=== PATIENT | male | born 1980 | race African-American/Black ===

== ENCOUNTER 2016-07-29 04:12 | Emergency (ER) | payer SELFPAY ==
[2016-07-29] MEDS ORDERED: DEXAMETHASONE SOD PHOS INJ 10 MG/1 ML VIAL IM ONE (04:35)
[2016-07-29] MEDS ORDERED: PENICILLIN G BENZATHINE 1.2 MILLION UNIT/2 ML DISP.SYRIN IM ONE (04:35)
--- NOTE | 2016-07-29 04:36 | ER Document Report ---
ED General - General Chief Complaint: Sore Throat Stated Complaint: SORE THROAT Notes: Patient is a 35 show male presents with complaint of sore throat for 3 days. Fever of 102 at home. He has missed work for last 3 days. He says it started to hurt when he swallows. No difficulty breathing. No cough. No congestion. No other complaints at this time. No abdominal pain or vomiting. TRAVEL OUTSIDE OF THE [place] IN LAST 30 DAYS: No - Related Data Allergies/Adverse Reactions: No Known Allergies Allergy (Verified 12/12/14 20:10) Past Medical History - Social History Smoking Status: Never Smoker Chew tobacco use (# tins/day): No Frequency of alcohol use: None Drug Abuse: None Family History: Reviewed & Not Pertinent Patient has suicidal ideation: No Patient has homicidal ideation: No Renal/ Medical History: Denies: Hx Peritoneal Dialysis Past Surgical History: Reports: Hx Appendectomy - Immunizations Hx Diphtheria, Pertussis, Tetanus Vaccination: Yes Review of Systems - Review of Systems Notes: My Normal Review Basic REVIEW OF SYSTEMS: CONSTITUTIONAL : Denies fever, chills, or sweats. Denies recent illness. EENT: Sore throat CARDIOVASCULAR: Denies chest pain. RESPIRATORY: Denies cough, cold, or chest congestion. Denies shortness of breath, difficulty breathing, or wheezing. GASTROINTESTINAL: Denies abdominal pain. Denies nausea, vomiting, or diarrhea. Denies constipation. Last BM: MUSCULOSKELETAL: Denies neck or back pain or joint pain or swelling. SKIN: Denies rash or skin lesions. NEUROLOGICAL: Denies altered mental status or loss of consciousness. D ALL OTHER SYSTEMS REVIEWED AND NEGATIVE. Physical Exam - Vital signs Vitals: Temp Resp BP Pulse Ox 98.5 F 17 135/82 H 95 07/29/16 04:15 07/29/16 04:15 07/29/16 04:15 07/29/16 04:15 - Notes Notes: General Appearance: Well nourished, alert, cooperative, no acute distress, mild obvious discomfort. Well-appearing Vitals: reviewed, See vital signs table. Head: no swelling or tenderness to the head Eyes: PERRL, EOMI, Conjuctiva clear Mouth: No decreasd moisture Throat: Bilateral enlarged tonsils with erythema and exudates. Uvula is midline. No swelling in the peritonsillar space. No evidence of peritonsillar abscess. Neck: Supple, no neck tenderness, mild anterior cervical lymphadenopathy. Lungs: No wheezing, No rales, No rhonci, No accessory muscle use, good air exchange bilaterally. Heart: Normal rate, Regular rythm, No murmur, no rub Skin: warm, dry, appropriate color, no rash Neuro: speech clear, oriented x 3, normal affect, responds appropriately to questions. Course - Vital Signs Vital signs: Temp Pulse Resp BP Pulse Ox 98.5 F 17 135/82 H 95 07/29/16 04:15 07/29/16 04:15 07/29/16 04:15 07/29/16 04:15 - Transfer of Care Notes: 07/29/16 05:08 Patient has history and exam consistent with strep pharyngitis. I gave him a shot of penicillin as well as a shot of Decadron. I encouraged patient to return to ER if his symptoms are not improving in a few days. Also encouraged return to ER immediately. A swelling sensation of swelling in his throat or difficulty breathing. Also reviewed the signs and symptoms of peritonsillar abscess with him encouraged him to return to ER immediately if he has any signs or symptoms. Patient agrees with plan and will be discharged home. Dictation of this chart was performed using voice recognition software; therefore, there may be some unintended grammatical errors. Discharge - Discharge Clinical Impression: Strep throat Condition: Good Disposition: HOME, SELF-CARE Additional Instructions: Strep Throat Your sore throat is due to the streptococcus germ (strep throat). Strep throat usually makes you feel quite ill with fever and aches, headache, swollen sore throat, and tender bumps under the angles of the jaw. Strep throat requires antibiotic treatment. Although the sore throat may go away by itself, complications such as rheumatic fever, kidney disease, or throat abscess can occur. We usually prescribe antibiotics by mouth. Be sure to take the medicine until it's gone. If you stop early, the strep may come back. If you are vomiting, are severely ill, or can't remember to take pills, we can give you an antibiotic shot. Take acetaminophen or ibuprofen for pain and fever. Sip frequent clear liquids, or use popsicles or ice chips. Anesthetic sprays or lozenges may help. Make sure the air in the room is not too dry. Avoid using decongestants or antihistamines. Call the doctor if there is no improvement in three days, or if you have difficulty breathing, increasing throat pain, high fever, rash, or frequent vomiting. You have been given a shot of penicillin and Decadron. These are medications used to treat strep throat. Please return to ER immediately if you have difficulty breathing, increased difficulty swallowing, feel that your throat is becoming more swollen, recurrent high fevers, or feel unwell. Please return to ER immediately if you notice increased swelling in the back your throat or if the uvula ( hanging ball appearing structure in the back of your throat) is shifted to one side as these would be signs of a peritonsillar abscess. Forms: Return to Work
[2016-07-29 05:22] VITALS: BP 126/86
== END 2016-07-29 05:13 | disposition home or self-care (01) ==
LOC: ER 04:12
DX: J02.0 Streptococcal pharyngitis (principal)
CPT/HCPCS: 99282; 96372; J0561; J1100

== ENCOUNTER 2017-06-23 22:05 | Emergency (ER) | payer BC ==
[2017-06-23] MEDS ORDERED: HYDROCODONE/ACETAMINOPHEN 5-325 MG TABLET PO ONE (23:21)
[2017-06-23] MEDS ORDERED: CYCLOBENZAPRINE HCL 10 MG TABLET PO ONE (23:21)
--- NOTE | 2017-06-23 23:23 | ER Document Report ---
ED Neck/Back Problem - General Information source: Patient TRAVEL OUTSIDE OF THE [place] IN LAST 30 DAYS: No - General Chief Complaint: Back Pain Stated Complaint: BACK PAIN Time Seen by Provider: 06/23/17 22:59 Notes: Patient is a 36-year-old male who presents to the emergency department today with complaints of low back pain for the last 2 weeks. Patient states the pain got much worse today prior to arrival. Patient states his pain becomes much worse when he rolls over or tries to stand. Patient states his pain was so bad today he could not get out of bed. Patient denies any MVC or trauma to the back to cause the pain. Patient states he has no idea why the pain began. Patient denies any fevers, chills, nausea, vomiting, diarrhea, penile discharge , hematuria, numbness, tingling, weakness, urinary or fecal incontinence, or saddle anesthesia. (DANNY ESPAÑA) denies history of cancer, urinary catheterization, recent surgery. (LULA POSADA) - Related Data Allergies/Adverse Reactions: No Known Allergies Allergy (Verified 12/12/14 20:10) Past Medical History - General Information source: Patient - Social History Smoking Status: Never Smoker Cigarette use (# per day): No Chew tobacco use (# tins/day): No Frequency of alcohol use: None Drug Abuse: None Lives with: Family Family History: Reviewed & Not Pertinent Patient has suicidal ideation: No Patient has homicidal ideation: No Past Surgical History: Reports: Hx Appendectomy - 2004 - Immunizations Hx Diphtheria, Pertussis, Tetanus Vaccination: Yes Review of Systems - Review of Systems Constitutional: denies: Chills, Fever EENT: No symptoms reported Cardiovascular: No symptoms reported Respiratory: No symptoms reported Gastrointestinal: denies: Diarrhea, Nausea, Vomiting Genitourinary: No symptoms reported Male Genitourinary: denies: Penile discharge Musculoskeletal: See HPI, Back pain Skin: No symptoms reported Hematologic/Lymphatic: No symptoms reported Neurological/Psychological: denies: Weakness, Numbness, Tingling -: Yes All other systems reviewed and negative Physical Exam - Vital signs Vitals: Temp Pulse Resp BP Pulse Ox 98.6 F 88 16 132/78 H 98 06/23/17 22:13 06/23/17 22:13 06/23/17 22:13 06/23/17 22:13 06/23/17 22:13 - Notes Notes: PHYSICAL EXAM GENERAL: Alert, interacts well. No acute distress. HEAD: Normocephalic, atraumatic. EYES: Pupils equal, round, and reactive to light. Extraocular movements intact. ENT: Oral mucosa moist, tongue midline. NECK: Full range of motion. Supple. Trachea midline. LUNGS: Clear to auscultation bilaterally, no wheezes, rales, or rhonchi. No respiratory distress. HEART: Regular rate and rhythm. No murmurs, gallops, or rubs. ABDOMEN: Soft, non-tender. Non-distended. Bowel sounds present in all 4 quadrants. EXTREMITIES: Moves all 4 extremities spontaneously. No edema, radial and dorsalis pedis pulses 2/4 bilaterally. No cyanosis. BACK: Complains of pain when "using back muscles", lifting legs and rolling over cause pain. No reproducible pain with palpation. Negative bilateral straight leg raise. NEUROLOGICAL: Alert and oriented x3. Normal speech. Normal great toe raise strength. Patellar DTRs 2+ bilaterally. Sensation intact, no saddle anesthesia. Negative Babinski reflex bilaterally. PSYCH: Normal affect, normal mood. SKIN: Warm, dry, normal turgor. No rashes or lesions noted. (DANNY ESPAÑA) Course - Re-evaluation Re-evalutation: 06/23/17 23:30 No evidence of cauda equina or epidural abscess. No numbness, tingling, weakness. Pain is only caused when he moves, no history of trauma. Patient will be given muscle relaxers and recommended to use NSAIDs. Discharged home. ( LULA POSADA) - Vital Signs Vital signs: Temp Pulse Resp BP Pulse Ox 98.5 F 86 18 128/76 H 99 06/23/17 23:40 06/23/17 23:40 06/23/17 23:40 06/23/17 23:40 06/23/17 23:40 Discharge - Discharge Clinical Impression: Pre-hypertension Acute low back pain Qualifiers: Back pain laterality: bilateral Sciatica presence: without sciatica Qualified Code(s): M54.5 - Low back pain Condition: Stable Disposition: HOME, SELF-CARE Additional Instructions: If you develop difficulty urinating, have any incontinence of stool, develop any numbness, tingling weakness or have any new or concerning symptoms such as fever please return to the emergency department immediately. You should take ibuprofen 800 mg every 8 hours for pain in addition to the Flexeril. Prescriptions: Cyclobenzaprine HCl [Flexeril 10 mg Tablet] 10 mg PO TIDP PRN #15 tab PRN Reason: Forms: Elevated Blood Pressure, Return to Work Referrals: SOTERO AVERY MD [ACTIVE STAFF] - Follow up in 1 week Scribe Attestation: 06/24/17 04:17 I personally performed the services described in the documentation, reviewed and edited the documentation which was dictated to the scribe in my presence, and it accurately records my words and actions. (LULA POSADA) Scribe Documentation - Scribe Written by Chino:: Chino Rodriguez, 06/24/2017 0228 acting as scribe for :: Adan
[2017-06-23 23:41] VITALS: BP 128/76
== END 2017-06-23 23:43 | disposition home or self-care (01) ==
LOC: ER 22:05
DX: R03.0 Elevated blood-pressure reading, without diagnosis of hypertension (principal); M54.5 Low back pain
CPT/HCPCS: 99283

== ENCOUNTER 2017-11-20 17:55 | Emergency (ER) | payer BC ==
[2017-11-20] MEDS ORDERED: KETOROLAC TROMETHAMINE INJ/PF 30 MG/1 ML SDV IV ONE (18:17)
[2017-11-20] MEDS ORDERED: NORMAL SALINE 1000 ML 1,000 ML IV ONE (18:17)
[2017-11-20] MEDS ORDERED: ONDANSETRON HCL INJ/PF 4 MG/2 ML SDV IV ONE (18:17)
--- NOTE | 2017-11-20 18:20 | ER Document Report ---
ED Medical Screen (RME) - General Chief Complaint: Shortness Of Breath Stated Complaint: BODY ACHES Time Seen by Provider: 11/20/17 18:08 Mode of Arrival: Ambulatory Information source: Patient Notes: Patient presents complaining of body aches, weakness and subjective fever for the past week. Patient states he has had a cough for the past week with headache off and on. Patient does report nausea for the past 2 days but denies any vomiting or diarrhea. Patient reports decreased appetite. Patient states that he has felt weak and had exertional shortness of breath which prompted his visit today. Patient states he has had episodes of diaphoresis at home. I have greeted and performed a rapid initial assessment of this patient. A comprehensive ED assessment and evaluation of the patient, analysis of test results and completion of the medical decision making process will be conducted by additional ED providers. TRAVEL OUTSIDE OF THE [place] IN LAST 30 DAYS: No - Related Data Allergies/Adverse Reactions: No Known Allergies Allergy (Verified 11/20/17 17:57) Past Medical History - Social History Family history: Reviewed & Not Pertinent Renal/ Medical History: Denies: Hx Peritoneal Dialysis Past Surgical History: Reports: Hx Appendectomy - Immunizations Hx Diphtheria, Pertussis, Tetanus Vaccination: Yes Physical Exam - Vital signs Vitals: Temp Pulse Resp BP Pulse Ox 98.9 F 78 18 143/83 H 94 11/20/17 18:02 11/20/17 18:02 11/20/17 18:02 11/20/17 18:02 11/20/17 18:02 - Respiratory Respiratory status: No respiratory distress Breath sounds: Normal - Cardiovascular Rhythm: Regular Heart sounds: S1 appreciated, S2 appreciated Course - Vital Signs Vital signs: Temp Pulse Resp BP Pulse Ox 98.9 F 78 18 143/83 H 94 11/20/17 18:02 11/20/17 18:02 11/20/17 18:02 11/20/17 18:02 11/20/17 18:02
--- NOTE | 2017-11-20 18:47 | RADIOLOGY REPORT (SQ) ---
EXAM DESCRIPTION: CHEST 2 VIEWS COMPLETED DATE/TIME: 11/20/2017 6:36 pm REASON FOR STUDY: cough, sob COMPARISON: 10/25/2015 EXAM PARAMETERS: NUMBER OF VIEWS: two views TECHNIQUE: Digital Frontal and Lateral radiographic views of the chest acquired. RADIATION DOSE: NA LIMITATIONS: none FINDINGS: LUNGS AND PLEURA: No opacities, masses or pneumothorax. No pleural effusion. MEDIASTINUM AND HILAR STRUCTURES: No masses or contour abnormalities. HEART AND VASCULAR STRUCTURES: Heart normal size. No evidence for failure. BONES: No acute findings. HARDWARE: None in the chest. OTHER: No other significant finding. IMPRESSION: NO ACUTE RADIOGRAPHIC FINDING IN THE CHEST. TECHNICAL DOCUMENTATION: JOB ID: [id number] [employer]- All Rights Reserved Reading location - IP/workstation name: [email or web address]
[2017-11-20 19:05] LABS: ABSOLUTE BASOPHILS # (AUTO) 0.1 10^3/uL (0.0-0.2); ABSOLUTE EOSINOPHILS # (AUTO) 0.1 10^3/uL (0.0-0.6); ABSOLUTE LYMPHOCYTES (AUTO) 3.1 10^3/uL (0.5-4.7); ABSOLUTE MONOCYTES (AUTO) 0.8 10^3/uL (0.1-1.4); ABSOLUTE NEUT (AUTO) 3.2 10^3/uL (1.7-8.2); BASOPHILS % (AUTO) 1.2 % (0-2); EOSINOPHILS % (AUTO) 1.9 % (0-6); HEMATOCRIT 46.5 % (37.9-51.0); HEMOGLOBIN 15.8 g/dL (13.5-17.0); LYMPHOCYTES % (AUTO) 42.6 % (13-45); MEAN CORPUSCULAR HEMOGLOBIN 29.6 pg (27.0-33.4); MEAN CORPUSCULAR HGB CONC 33.9 g/dL (32.0-36.0); MEAN CORPUSCULAR VOLUME 87 fl (80-97); MONOCYTES % (AUTO) 11.1 % (3-13); PLATELET COUNT 203 10^3/uL (150-450); RED BLOOD COUNT 5.33 10^6/uL (4.35-5.55); SEGMENTED NEUTROPHILS % (AUTO) 43.2 % (42-78); TOTAL CELLS COUNTED % (AUTO) 100 %; WHITE BLOOD COUNT 7.4 10^3/uL (4.0-10.5)
[2017-11-20 19:21] LABS: ALANINE AMINOTRANSFERASE 39 U/L (21-72); ALBUMIN 4.4 g/dL (3.5-5.0); ALKALINE PHOSPHATASE 96 U/L (38-126); ANION GAP 12 (5-19); ASPARTATE AMINO TRANSFERASE 38 U/L (17-59); BILIRUBIN,DIRECT 0.3 mg/dL (0.0-0.4); BILIRUBIN,TOTAL 0.4 mg/dL (0.2-1.3); BLOOD UREA NITROGEN 13 mg/dL (7-20); CALCIUM 9.6 mg/dL (8.4-10.2); CARBON DIOXIDE 28 mmol/L (22-30); CHLORIDE 104 mmol/L (98-107); CREATINE KINASE 119 U/L (55-170); GLUCOSE 113 mg/dL (75-110); POTASSIUM 4.6 mmol/L (3.6-5.0); TOTAL PROTEIN 7.8 g/dL (6.3-8.2)
[2017-11-20 19:28] LABS: APPEARANCE,URINE CLEAR; BILIRUBIN,URINE NEGATIVE (NEGATIVE); COLOR,URINE YELLOW; GLUCOSE, URINE NEGATIVE (NEGATIVE); KETONES,URINE NEGATIVE (NEGATIVE); LEUKOCYTE ESTERASE,URINE SMALL (NEGATIVE); NITRITE,URINE NEGATIVE (NEGATIVE); PROTEIN,URINE NEGATIVE (NEGATIVE); URINE SPECIFIC GRAVITY 1.027; UROBILINOGEN,URINE NEGATIVE mg/dL (<2.0)
[2017-11-20 19:32] LABS: CREATINE KINASE MB 0.29 ng/mL (<4.55)
[2017-11-20 19:33] LABS: TROPONIN I < 0.012 ng/mL
--- NOTE | 2017-11-20 19:42 | ER Document Report ---
HPI - HPI Pain Level: 4 Context: Patient is a 37-year-old male presents with chief complaint of body aches, sinus congestion, sore throat, nonproductive cough and subjective fevers for the past week. Patient admits to intermittent headache without any vision changes, dizziness. Patient states she has had decreased appetite and decreased p.o. intake. He also admits to exertional shortness of breath. He denies any chest pain, nausea or vomiting. Otherwise healthy male - CONSTITUTIONAL Constitutional: REPORTS: Fever, Chills - EENT EENT: REPORTS: Sore Throat - NEURO Neurology: REPORTS: Headache, Dizzinesss / Vertigo - CARDIOVASCULAR Cardiovascular: REPORTS: Chest pain - RESPIRATORY Respiratory: REPORTS: Coughing - REPRODUCTIVE Reproductive: DENIES: : - DERM Skin Color: Normal Past Medical History - General Information source: Patient - Social History Smoking Status: Current Every Day Smoker Chew tobacco use (# tins/day): No Frequency of alcohol use: Occasional Drug Abuse: None Family History: Reviewed & Not Pertinent Patient has suicidal ideation: No Patient has homicidal ideation: No Renal/ Medical History: Denies: Hx Peritoneal Dialysis Past Surgical History: Reports: Hx Appendectomy - Immunizations Hx Diphtheria, Pertussis, Tetanus Vaccination: Yes Vertical Provider Document - CONSTITUTIONAL Agree With Documented VS: Yes Notes: PHYSICAL EXAM GENERAL: Alert, interacts well. HEAD: Normocephalic, atraumatic. EYES: Pupils equal, round, and reactive to light. Extraocular movements intact. ENT: Oral mucosa moist, tongue midline. NECK: Full range of motion. Supple. Trachea midline. LUNGS: Clear to auscultation bilaterally, no wheezes, rales, or rhonchi. No respiratory distress. HEART: Regular rate and rhythm. No murmurs, gallops, or rubs. ABDOMEN: Soft, nondistended, nontender. No guarding, rebound, or rigidity.. Bowel sounds present in all 4 quadrants. EXTREMITIES: Moves all 4 extremities spontaneously. No edema, radial and dorsalis pedis pulses 2/4 bilaterally. No cyanosis. NEUROLOGICAL: Alert and oriented x4. Normal speech. PSYCH: Normal affect, normal mood. SKIN: Warm, dry, normal turgor. No rashes or lesions noted. - INFECTION CONTROL TRAVEL OUTSIDE OF THE [place] IN LAST 30 DAYS: No Course - Re-evaluation Re-evalutation: 11/20/17 19:53 Presentation is most consistent with a viral upper respiratory infection. Patient is overall well appearance, vitals within normal limits, well-hydrated. Patient denies any headache, neck pain, and has no evidence of meningismus on examination. Lungs are clear bilaterally. No evidence of respiratory distress. Based on clinical exam and history, I do not suspect an acute pneumonia, meningitis, strep pharyngitis, or an acute encephalitis. No laboratory or imaging testing is indicated at this time. Will discharge patient with return precautions and followup recommendations. They are in agreement this plan have verbalized understanding return precautions. - Vital Signs Vital signs: Temp Pulse Resp BP Pulse Ox 98.9 F 78 18 143/83 H 94 11/20/17 18:02 11/20/17 18:02 11/20/17 18:02 11/20/17 18:02 11/20/17 18:02 - Laboratory Result Diagrams: 11/20/17 18:54 11/20/17 18:54 Laboratory results interpreted by me: 11/20/17 11/20/17 11/20/17 18:54 18:54 19:04 RDW 15.0 H Creatinine 1.30 H Glucose 113 H Ur Leukocyte Esterase SMALL H Urine Ascorbic Acid 40 H Discharge - Discharge Clinical Impression: URI (upper respiratory infection) Condition: Good Disposition: HOME, SELF-CARE Additional Instructions: Your symptoms are most likely due to a viral infection it should resolve over the next 7-14 days. You should take [id number] guanfacine per bottle instructions to help thin the mucus. For nasal congestion: I would recommend that you get [id number] oxymetazoline also known is afrin and either Claritin-D or Serena-D . Use only per bottle instructions and be sure to never use this for more than 3 days if you can develop severe rebound congestion. You may also use tylenol or ibuprofen as needed for aches and thorat discomfort. Please be sure to drink plenty of fluids and get rest. Return to the emergency department he began having difficulty breathing, chest pain, persistent vomiting, or any other symptoms that are concerning to you. Referrals: CHINMAY PIÑA MD [COMMUNITY BASED STAFF] - Follow up as needed
--- NOTE | 2017-11-20 19:58 | EKG REPORT ---
SEVERITY:- BORDERLINE ECG - SINUS RHYTHM BORDERLINE T ABNORMALITIES, DIFFUSE LEADS : Confirmed by: Sandra Barber MD 20-Nov-2017 19:57:57
[2017-11-20 20:02] VITALS: BP 133/73
== END 2017-11-20 20:02 | disposition home or self-care (01) ==
LOC: ER 17:55
DX: J06.9 Acute upper respiratory infection, unspecified (principal); M79.1 Myalgia; R09.81 Nasal congestion; J02.9 Acute pharyngitis, unspecified; R05 Cough; R50.9 Fever, unspecified; R51 Headache; R63.0 Anorexia; R42 Dizziness and giddiness; R07.9 Chest pain, unspecified; F17.200 Nicotine dependence, unspecified, uncomplicated
CPT/HCPCS: 93005; 99284; 96361; 96374; 96375; 36415; 87070; 82553; 87880; 82550; 85025; 80053; 81001; 84484; 71046; 93010; J1885; J2405; J7030

== ENCOUNTER 2019-06-18 19:40 | Emergency (ER) | payer SELFPAY ==
[2019-06-18] MEDS ORDERED: IBUPROFEN 800 MG TABLET PO ONE (20:06)
[2019-06-18] MEDS ORDERED: ONDANSETRON 4 MG TAB.RAPDIS PO ONE (20:06)
--- NOTE | 2019-06-18 20:09 | ER Document Report ---
ED Medical Screen (RME) - General Chief Complaint: Flu Symptoms Stated Complaint: FLU SYMPTOMS Time Seen by Provider: 06/18/19 20:03 Mode of Arrival: Wheelchair Information source: Patient, Relative Notes: 38-year-old relatively healthy male presents emergency department with complaints of body aches nausea fever abdominal pain. Reports symptoms started last night. Denies vomiting diarrhea. Reports started after they got home from a trip. Reports he did not go out of the country. He has not received his flu vaccine. Denies sore throat. Patient took some cold and sinus medication e panfilolier today. [employer] TRAVEL OUTSIDE OF THE [place] IN LAST 30 DAYS: No - Related Data Allergies/Adverse Reactions: No Known Allergies Allergy (Verified 11/20/17 17:57) Past Medical History - Social History Family history: Reviewed & Not Pertinent Renal/ Medical History: Denies: Hx Peritoneal Dialysis Past Surgical History: Reports: Hx Appendectomy - Immunizations Hx Diphtheria, Pertussis, Tetanus Vaccination: Yes Physical Exam - Vital signs Vitals: Temp Pulse Resp BP Pulse Ox 101.7 F H 119 H 18 124/81 98 06/18/19 19:47 06/18/19 19:47 06/18/19 19:47 06/18/19 19:47 06/18/19 19:47 Course - Vital Signs Vital signs: Temp Pulse Resp BP Pulse Ox 101.7 F H 119 H 18 124/81 98 06/18/19 19:47 06/18/19 19:47 06/18/19 19:47 06/18/19 19:47 06/18/19 19:47
[2019-06-18 21:18] LABS: ABSOLUTE BASOPHILS # (AUTO) 0.1 10^3/uL (0.0-0.2); ABSOLUTE LYMPHOCYTES (AUTO) 1.2 10^3/uL (0.5-4.7); ABSOLUTE MONOCYTES (AUTO) 0.8 10^3/uL (0.1-1.4); ABSOLUTE NEUT (AUTO) 6.5 10^3/uL (1.7-8.2); BASOPHILS % (AUTO) 0.8 % (0-2); EOSINOPHILS % (AUTO) 0.4 % (0-6); HEMATOCRIT 47.8 % (37.9-51.0); HEMOGLOBIN 16.1 g/dL (13.5-17.0); LYMPHOCYTES % (AUTO) 13.8 % (13-45); MEAN CORPUSCULAR HEMOGLOBIN 29.5 pg (27.0-33.4); MEAN CORPUSCULAR HGB CONC 33.7 g/dL (32.0-36.0); MEAN CORPUSCULAR VOLUME 87 fl (80-97); MONOCYTES % (AUTO) 8.8 % (3-13); PLATELET COUNT 224 10^3/uL (150-450); RED BLOOD COUNT 5.48 10^6/uL (4.35-5.55); RED CELL DISTRIBUTION WIDTH 14.6 % (11.5-14.0); SEGMENTED NEUTROPHILS % (AUTO) 76.2 % (42-78); TOTAL CELLS COUNTED % (AUTO) 100 %; WHITE BLOOD COUNT 8.6 10^3/uL (4.0-10.5)
[2019-06-18 21:26] LABS: APPEARANCE,URINE CLEAR; BILIRUBIN,URINE NEGATIVE (NEGATIVE); COLOR,URINE YELLOW; GLUCOSE, URINE NEGATIVE (NEGATIVE); KETONES,URINE NEGATIVE (NEGATIVE); LEUKOCYTE ESTERASE,URINE NEGATIVE (NEGATIVE); NITRITE,URINE NEGATIVE (NEGATIVE); PROTEIN,URINE 30 mg/dL (NEGATIVE); URINE SPECIFIC GRAVITY 1.025; UROBILINOGEN,URINE NEGATIVE mg/dL (<2.0)
[2019-06-18 21:38] LABS: A TYPE INFLUENZA AG NEGATIVE (NEGATIVE); B INFLUENZA AG NEGATIVE (NEGATIVE)
[2019-06-18 21:40] LABS: ALBUMIN 4.8 g/dL (3.5-5.0); ALKALINE PHOSPHATASE 105 U/L (38-126); ANION GAP 14 (5-19); ASPARTATE AMINO TRANSFERASE 41 U/L (17-59); BILIRUBIN,DIRECT 0.2 mg/dL (0.0-0.4); BILIRUBIN,TOTAL 0.6 mg/dL (0.2-1.3); BLOOD UREA NITROGEN 10 mg/dL (7-20); CALCIUM 9.8 mg/dL (8.4-10.2); CARBON DIOXIDE 27 mmol/L (22-30); CHLORIDE 100 mmol/L (98-107); GLUCOSE 120 mg/dL (75-110); POTASSIUM 4.3 mmol/L (3.6-5.0); TOTAL PROTEIN 8.6 g/dL (6.3-8.2)
[2019-06-19] MEDS ORDERED: OSELTAMIVIR PHOSPHATE 75 MG CAPSULE PO ONE (00:02)
--- NOTE | 2019-06-19 00:08 | ER Document Report ---
ED Flu Like - General Chief Complaint: Flu Symptoms Stated Complaint: FLU SYMPTOMS Time Seen by Provider: 06/18/19 20:03 Mode of Arrival: Wheelchair Notes: 38-year-old male presents to the emergency department with a 1 day history of fever, body aches and pains, fatigue and flulike illness. States that he did not get a flu shot this year and that the symptoms have come on suddenly. He does have a runny nose and associated cough. TRAVEL OUTSIDE OF THE [place] IN LAST 30 DAYS: No - Related Data Allergies/Adverse Reactions: No Known Allergies Allergy (Verified 11/20/17 17:57) Past Medical History - General Information source: Patient, Relative - Social History Smoking Status: Never Smoker Family History: Reviewed & Not Pertinent Patient has suicidal ideation: No Patient has homicidal ideation: No Renal/ Medical History: Denies: Hx Peritoneal Dialysis Past Surgical History: Reports: Hx Appendectomy - Immunizations Hx Diphtheria, Pertussis, Tetanus Vaccination: Yes Review of Systems - Review of Systems Notes: Constitutional: +fever. HENT: Negative for sore throat. Eyes: Negative for visual changes. Cardiovascular: Negative for chest pain. Respiratory:+ Cough, no shortness of breath. Gastrointestinal: Negative for abdominal pain, vomiting or diarrhea. Genitourinary: Negative for dysuria. Musculoskeletal: Negative for back pain. Skin: Negative for rash. Neurological: Negative for headaches, weakness or numbness. 10 point ROS negative except as marked above and in HPI. Physical Exam - Vital signs Vitals: Temp Pulse Resp BP Pulse Ox 101.7 F H 119 H 18 124/81 98 06/18/19 19:47 06/18/19 19:47 06/18/19 19:47 06/18/19 19:47 06/18/19 19:47 - Notes Notes: PHYSICAL EXAMINATION: Physical Exam: General: Ill appearing male in no acute distress HEENT: NC/AT, pupils equal round and reactive to light, MM moist,nares congestion Neck: supple, no adenopathy, no masses. Lungs: clear, no wheezing, no rales no rhonchi CVS: Regular rate and rhythm no murmur gallop or rub Abdomen: Soft active nontender, no masses, no hepatosplenomegaly Ext: No edema clubbing or cyanosis. Neuro: Alert and responsive, moving all 4 extremities on command, cranial nerves intact. Skin: Intact no open lesions, no rash PSYCH: Normal mood, normal affect. Course - Re-evaluation Re-evalutation: 06/19/19 00:06 Patient with flulike illness, body aches and pains with fever and fatigue. Symptoms began suddenly yesterday and have continued through today. He did not take flu shot and influenza testing in the emergency department are negative. I have told the patient and his who is a nurse, that we will be starting Tamiflu and he will be given a prescription for Tamiflu. He is to be given ibuprofen alternating with Tylenol, push fluids and symptomatic management. They acknowledge understanding of this plan and are in agreement. - Vital Signs Vital signs: Temp Pulse Resp BP Pulse Ox 101.7 F H 119 H 18 124/81 98 06/18/19 19:47 06/18/19 19:47 06/18/19 19:47 06/18/19 19:47 06/18/19 19:47 - Laboratory Result Diagrams: 06/18/19 20:50 06/18/19 20:50 Laboratory results interpreted by me: 06/18/19 06/18/19 06/18/19 20:50 20:50 20:50 RDW 14.6 H Creatinine 1.64 H Est GFR ( Amer) 57 L Est GFR (MDRD) Non-Af 47 L Glucose 120 H Total Protein 8.6 H Urine Protein 30 H Urine Ascorbic Acid 20 H Discharge - Discharge Clinical Impression: Influenza Condition: Good Disposition: HOME, SELF-CARE Instructions: Influenza ([facility]) [id number], Acetaminophen
[2019-06-19 00:27] VITALS: BP 123/65
== END 2019-06-19 00:21 | disposition home or self-care (01) ==
LOC: ER 19:40
DX: J11.1 Influenza due to unidentified influenza virus with other respiratory manifestations (principal); R50.9 Fever, unspecified; M79.10 Myalgia, unspecified site; R53.83 Other fatigue; R09.89 Other specified symptoms and signs involving the circulatory and respiratory systems; R05 Cough
CPT/HCPCS: 99283; 36415; 83690; 85025; 80053; 81001; 87804; S0119; J3490